=== PATIENT | male | born 1990 | race Two or more races ===

== ENCOUNTER 2022-08-15 19:20 | Emergency (ER) | payer MEDICAID ==
--- NOTE | 2022-08-15 20:15 | NUR ---
CALLED TO TRIAGE NO ANSWER
--- NOTE | 2022-08-15 20:59 | NUR ---
NOT IN WAITING ROOM
== END 2022-08-15 20:59 | disposition left against medical advice (07) ==
LOC: ER 19:22
DX: Z53.21 Procedure and treatment not carried out due to patient leaving prior to being seen by health care provider (principal)